=== PATIENT | male | born 1995 | race African-American/Black ===

== ENCOUNTER 2017-03-15 15:05 | Emergency (ER) | payer SELFPAY ==
[~2017-03-15] VITALS: Wt 83.0 kg
[~2017-03-15 15:05] MED LIST: NO HOME MEDICATIONS; ZITHROMAX Z PA250 MG PO; ZOFRAN 4MG T4 MG/TAB PO
[2017-03-15 15:08] VITALS: BP 128/55; TEMP 98.2
[2017-03-15 16:16] VITALS: PULSE 53
== END 2017-03-15 16:16 | disposition home or self-care (01) ==
LOC: COL.ER 15:05
DX: J30.9 Allergic rhinitis, unspecified (principal)

== ENCOUNTER 2018-01-06 16:00 | Emergency (ER) | payer SELFPAY ==
[~2018-01-06] VITALS: Ht 193 cm; Wt 84.1 kg
[2018-01-06 16:12] VITALS: TEMP 99
[2018-01-06 17:29] LABS: COLLECTION METHOD RANDOM VOIDED
[2018-01-06 17:35] LABS: PH 6 (5-8); SQUAMOUS EPITHELIAL 0-2 /hpf; URINE APPEARANCE Clear; URINE BACTERIA None Seen /hpf; URINE BILIRUBIN Negative (NEGATIVE); URINE BLOOD Negative (NEGATIVE); URINE COLOR Straw; URINE GLUCOSE Negative (NEGATIVE); URINE KETONE Negative (NEGATIVE); URINE LEUKOCYTE ESTERASE Trace (NEGATIVE); URINE NITRATE Negative (NEGATIVE); URINE PROTEIN(semi-quant) Negative (NEGATIVE); URINE RBC 0-2 /hpf; URINE UROBILINOGEN Negative (NEGATIVE)
[2018-01-06 20:12] VITALS: BP 126/66; PULSE 89
== END 2018-01-06 20:14 | disposition home or self-care (01) ==
LOC: COL.ER 16:00
PROVIDERS: Physician Assistant
DX: A74.9 Chlamydial infection, unspecified (principal); A54.9 Gonococcal infection, unspecified
CPT/HCPCS: J0696